=== PATIENT | female | born 1965 | race Caucasian/White ===

== ENCOUNTER → 2021-03-29 | Outpatient (CLI) | payer BC ==
[~2021-03-29] MED LIST: AMBIEN5 MG; ANTIVERT25 MG PO; BIRTH CONTROL1 EACH; ZOFRAN ODT4 MG PO
== END | disposition home or self-care (01) ==
LOC: COVID19 16:52
PROVIDERS: ATTEND Internal Medicine
DX: Z11.52 Encounter for screening for COVID-19 (principal)

== ENCOUNTER → 2022-03-30 | Day surgery (SDC) | payer BC ==
[2022-03-25 14:25] VITALS: BP 137/79
[~2022-03-30] MED LIST changes: +ONDANSETRON HYDR8 MG PO; +TRAMADOL HCL50 MG PO; +VIBRAMYCIN HYC100 MG PO; +XARELTO10 MG PO
[2022-03-30 07:05] VITALS: BP 138/86
[2022-03-30 10:28] VITALS: BP 121/76
[2022-03-30 10:43] VITALS: BP 128/80
[2022-03-30 10:58] VITALS: BP 125/89
[2022-03-30 11:13] VITALS: BP 126/81
[2022-03-30 11:28] VITALS: BP 137/80
== END | disposition home or self-care (01) ==
LOC: SDC 03-25 14:00
PROVIDERS: ATTEND Podiatrist Foot & Ankle Surgery
DX: M21.612 Bunion of left foot (principal); M19.072 Primary osteoarthritis, left ankle and foot; Z88.5 Allergy status to narcotic agent